=== PATIENT | male | born 1990 | race Caucasian/White ===

== ENCOUNTER 2017-02-17 16:43 | Emergency (ER) | payer MEDICAID ==
--- NOTE | 2017-02-17 17:11 | ERPHSYRPT ---
- History of Present Illness Time Seen by Provider: 02/17/17 17:05 Source: patient Exam Limitations: no limitations Patient Subjective Stated Complaint: PT REPORTS DROPPING A TV ONTO RIGHT HAND- REPORTS BLEEDING FROM FINGERS-DENIES NUMBNESS OR TINLGING Triage Nursing Assessment: PT PINK WARM ET DRY-LAC NOTED TO POINTER FINGER ET MIDDLE FINGER OF RIGHT HAND-CAP REFILL 3 SECONDS-RADIAL PULSE REGULAR Physician History: The patient is a 26-year-old right-handed male with a friend complaining of dropping a heavy TV on his middle and index finger on his right hand a few hours ago. He has a superficial laceration to the middle finger and a deep cut to the right index finger. His last tetanus vaccination was more than 5 years ago. Timing/Duration: today Quality: painful Severity: moderate Location: hands Possible Causes: other (trauma) Associated Symptoms: other (lac) Allergies/Adverse Reactions: No Known Drug Allergies Allergy (Unverified 02/17/17 16:55) Home Medications: No Home Meds 1 ea UD 02/17/17 [History] Hx Tetanus, Diphtheria Vaccination/Date Given: No Hx Influenza Vaccination/Date Given: No Hx Pneumococcal Vaccination/Date Given: No Immunizations Up to Date: Yes - Review of Systems Constitutional: No Fever, No Chills Eyes: No Symptoms Ears, Nose, & Throat: No Symptoms Respiratory: No Cough, No Dyspnea Cardiac: No Chest Pain, No Edema, No Syncope Abdominal/Gastrointestinal: No Abdominal Pain, No Nausea, No Vomiting, No Diarrhea Genitourinary Symptoms: No Dysuria Musculoskeletal: No Back Pain, No Neck Pain Skin: Other (lac) Neurological: No Dizziness, No Focal Weakness, No Sensory Changes Psychological: No Symptoms Endocrine: No Symptoms Hematologic/Lymphatic: No Symptoms Immunological/Allergic: No Symptoms All Other Systems: Reviewed and Negative - Past Medical History Pertinent Past Medical History: No - Past Surgical History Past Surgical History: No - Social History Smoking Status: Current every day smoker How long have you smoked: YRS Exposure to second hand smoke: Yes Drug Use: none Patient Lives Alone: No - Nursing Vital Signs Nursing Vital Signs: Initial Vital Signs Temperature 98.1 F Temperature Source Oral Pulse Rate 83 Respiratory Rate 16 Blood Pressure [] 135/75 Pain Intensity 2 - Physical Exam General Appearance: no apparent distress, alert Eye Exam: PERRL/EOMI, eyes nml inspection Ears, Nose, Throat Exam: normal ENT inspection, pharynx normal, moist mucous membranes Neck Exam: normal inspection, non-tender, supple, full range of motion Respiratory Exam: normal breath sounds, lungs clear, No respiratory distress Cardiovascular Exam: regular rate/rhythm, normal heart sounds Gastrointestinal/Abdomen Exam: soft, mass, No tenderness Rectal Exam: not done Back Exam: normal inspection, normal range of motion, No CVA tenderness, No vertebral tenderness Extremity Exam: normal inspection, normal range of motion Neurologic Exam: alert, oriented x 3, cooperative, normal mood/affect, sensation nml, No motor deficits Skin Exam: laceration (There is a superficial flap laceration to the middle part and palmar area of the right middle finger. Examination of the index finger of the right hand reveals a much deeper laceration extending from the DIP to the IP joint.) SpO2 Interpretation: normal SpO2: 96 Oxygen Delivery: Room Air Procedures - Laceration/Wound Repair Right Finger Wound Location: Right, hand Wound Length (cm): 2.0 Wound's Depth, Shape: linear, contused tissue Wound Explored: no foreign body noted Irrigated: Yes Hibiclens Prep: Yes Anesthesia: digital block, 1% Lidocaine Volume Anesthetic (ccs): 8 Wound Repaired With: sutures Suture Size/Type: 4-0, nylon Number of Sutures: 5 Layer Closure?: No - Radiology Exams Right Hand X-ray Interpretation: Interpreted by me, No Fracture Ordered Tests: Active Orders 24 hr Category Date Time Status Wound Care STAT Care 02/17/17 18:14 Active FINGER(S) Stat Exams 02/17/17 17:14 Taken Medication Summary Discontinued Medications Generic Name Dose Route Start Last Admin Trade Name Collin PRN Reason Stop Dose Admin Diphtheria/Tetanus/Acell Pertussis 0.5 ml 02/17/17 17:14 02/17/17 17:27 Adacel Vial IM 02/17/17 17:15 0.5 ml .ONCE ONE Administration Diphtheria/Tetanus/Acell Pertussis Confirm 02/17/17 17:22 Adacel Vial Administered 02/17/17 17:23 Dose 0.5 ml IM .STK-MED ONE Lidocaine HCl 10 ml 02/17/17 18:15 02/17/17 18:22 Xylocaine 1% Hcl 20 Ml Mdv IJ 02/17/17 18:16 10 ml STAT ONE Administration Lidocaine HCl Confirm 02/17/17 18:17 Xylocaine 1% Hcl 20 Ml Mdv Administered 02/17/17 18:18 Dose 5 ml .ROUTE .STK-MED ONE Lidocaine HCl Confirm 02/17/17 18:23 Xylocaine 1% Hcl 20 Ml Mdv Administered 02/17/17 18:24 Dose 5 ml .ROUTE .STK-MED ONE - Progress Progress: improved Counseled pt/family regarding: diagnosis, rad results - Departure Time of Disposition: 18:43 Departure Disposition: Home Clinical Impression: Laceration Condition: Stable Critical Care Time: No Instructions: Care for a Laceration After Repair Additional Instructions: You have a crush induced laceration near the tip of your right index finger. The x-rays were negative. The laceration was closed with 5 sutures. Have the sutures removed in 12-14 days by your primary medical doctor. Take Augmentin twice a day for 10 days. You were given a tetanus vaccination in the ER. You are excuse from work tomorrow. Take Tylenol and ibuprofen as needed. Prescriptions: Amoxicillin/Potassium Clav [Augmentin 875-125 Tablet] 875 mg PO BID #20 tablet
[2017-02-17] MEDS ORDERED: Adacel Vial IM ONE ×2 (17:14→17:22)
[2017-02-17 18:06] VITALS: BP 135/75; PULSE 83
[2017-02-17] MEDS ORDERED: XYLOCAINE 1% HCL 20 ML MDV IJ ONE (18:15)
[2017-02-17] MEDS ORDERED: XYLOCAINE 1% HCL 20 ML MDV ONE ×2 (18:17→18:23)
[2017-02-17 18:47] VITALS: O2SAT 96
--- NOTE | 2017-02-18 19:37 | XRAY ---
Exam: 3 views of the right second and third fingers from 02/17/2017. Comparison: None. Indication: Dropped television on right hand/fingers. Findings: AP, oblique, and lateral images of the right second and third fingers were obtained. I see no acute fracture or dislocation. Some mild soft tissue prominence/swelling about the right index and third fingers is seen. The joint spaces appear unremarkable. Impression: 1. No acute fracture or dislocation of the right index finger or right third finger is seen.
== END 2017-02-17 19:05 | disposition home or self-care (01) ==
LOC: ED 16:43
PROC: 0HQFXZZ Repair Right Hand Skin, External Approach (ICD-10-PCS; principal; 2017-02-17)
DX: S61.411A Laceration without foreign body of right hand, initial encounter (principal); W22.8XXA Striking against or struck by other objects, initial encounter
CPT/HCPCS: 12001; 73140; 90471; 90715; 99283

== ENCOUNTER 2017-03-06 18:22 | Emergency (ER) | payer MEDICAID ==
[2017-03-06 18:27] VITALS: BP 109/72; PULSE 63; O2SAT 96
--- NOTE | 2017-03-06 18:37 | ERPHSYRPT ---
- History of Present Illness Time Seen by Provider: 03/06/17 18:32 Source: patient Exam Limitations: no limitations Patient Subjective Stated Complaint: suture removal Triage Nursing Assessment: suture removal needed to rt index finger. pt stated they were placed here 2 weeks. wound well approximated. Physician History: The patient is a 26-year-old male who presents for suture removal after closure of a laceration on his right index finger on February 17. The laceration was caused when the patient dropped a TV on his finger. Timing/Duration: day(s) () Quality: other (suture removal) Severity: mild Location: hands Associated Symptoms: denies symptoms Allergies/Adverse Reactions: No Known Drug Allergies Allergy (Unverified 03/06/17 18:27) Home Medications: No Home Meds 1 ea UD 03/06/17 [History] Hx Tetanus, Diphtheria Vaccination/Date Given: Yes Hx Influenza Vaccination/Date Given: No Hx Pneumococcal Vaccination/Date Given: No Immunizations Up to Date: Yes - Review of Systems Constitutional: No Fever, No Chills Eyes: No Symptoms Ears, Nose, & Throat: No Symptoms Respiratory: No Cough, No Dyspnea Cardiac: No Chest Pain, No Edema, No Syncope Abdominal/Gastrointestinal: No Abdominal Pain, No Nausea, No Vomiting, No Diarrhea Genitourinary Symptoms: No Dysuria Musculoskeletal: No Back Pain, No Neck Pain Skin: Skin Lesions Neurological: No Dizziness, No Focal Weakness, No Sensory Changes Psychological: No Symptoms Endocrine: No Symptoms Hematologic/Lymphatic: No Symptoms Immunological/Allergic: No Symptoms All Other Systems: Reviewed and Negative - Past Medical History Pertinent Past Medical History: No - Past Surgical History Past Surgical History: No - Social History Smoking Status: Current every day smoker How long have you smoked: YRS Exposure to second hand smoke: No Drug Use: none Patient Lives Alone: No - Nursing Vital Signs Nursing Vital Signs: Initial Vital Signs Temperature Source Oral Pulse Rate 63 Respiratory Rate 18 Blood Pressure [Right Arm] 109/72 Pain Intensity 0 - Physical Exam General Appearance: no apparent distress, alert Eye Exam: PERRL/EOMI, eyes nml inspection Ears, Nose, Throat Exam: normal ENT inspection, pharynx normal, moist mucous membranes Neck Exam: normal inspection, non-tender, supple, full range of motion Respiratory Exam: normal breath sounds, lungs clear, No respiratory distress Cardiovascular Exam: regular rate/rhythm, normal heart sounds Gastrointestinal/Abdomen Exam: soft, mass, No tenderness Rectal Exam: not done Back Exam: normal inspection, normal range of motion, No CVA tenderness, No vertebral tenderness Extremity Exam: normal inspection, normal range of motion Neurologic Exam: alert, oriented x 3, cooperative, normal mood/affect, sensation nml, No motor deficits Skin Exam: other (There is a healing laceration to the distal right index finger with 5 sutures.) SpO2 Interpretation: normal SpO2: 96 Oxygen Delivery: Room Air - Progress Progress: improved Progress Note: 03/06/17 18:35 The 5 nylon sutures were removed successfully by the nurse without complication. Counseled pt/family regarding: diagnosis - Departure Time of Disposition: 18:35 Departure Disposition: Home Clinical Impression: Visit for suture removal Condition: Stable Critical Care Time: No Additional Instructions: You had 5 sutures removed from the her right index finger after they were placed for closure of a laceration on February 17. The area looks well-healed. Follow-up as needed
== END 2017-03-06 18:42 | disposition home or self-care (01) ==
LOC: ED 18:22
DX: Z48.02 Encounter for removal of sutures (principal)
CPT/HCPCS: 99281